=== PATIENT | female | born 1975 | race Caucasian/White ===

== ENCOUNTER → 2023-10-18 | Day surgery (SDC) | payer BC ==
[2023-10-15 08:34] VITALS: BMI 24.7
[~2023-10-18] MED LIST: Acetaminophen 500 MG TAB ONE; Bupivacaine/Epinephrine 0.25% 30 ML VIAL ONE; Dexamethasone 4 mg/ml Vial ONE; HYDROcodone/Acetaminophen 5/325 mg Tablet ONE; Ketorolac Tromethamine 30 MG (1 mL) VIAL ONE; Lidocaine 1% PF 5 ML VIAL ONE; Lidocaine 2% 6 ML (Jelly) SYR ONE; Lidocaine 4% PF 5 ML AMP ONE; Midazolam HCl 2 mg/2 ml Vial ONE; Ondansetron PF 4 MG/2 ML Vial ONE; PROPOFOL 20 ML ONE; SUGAMMADEX SODIUM 200 MG/2 ML VIAL ONE; ceFOXitin 1 GM VIAL ONE; ePHEDrine Sulfate 50 MG/10 ML VIAL ONE; fentaNYL 50 mcg/mL 1 mL Vial ONE
== END ==
LOC: CSHSDC 11:36
PROVIDERS: ATTEND Surgery
PROC: 06BY0ZC Excision of Hemorrhoidal Plexus, Open Approach (ICD-10-PCS; principal; 2023-10-18)
DX: K64.8 Other hemorrhoids (principal); K64.4 Residual hemorrhoidal skin tags; E11.9 Type 2 diabetes mellitus without complications; Z79.84 Long term (current) use of oral hypoglycemic drugs; Z79.899 Other long term (current) drug therapy; Z98.890 Other specified postprocedural states; Z98.51 Tubal ligation status; Z90.710 Acquired absence of both cervix and uterus; Z90.721 Acquired absence of ovaries, unilateral
CPT/HCPCS: 88304; J0694; J1100; J1885; J2250; J2405; J2704; J3010